=== PATIENT | male | born 1955 | race African-American/Black ===

== ENCOUNTER 2018-12-04 21:20 | Emergency (ER) | payer OTHER ==
[~2018-12-04] VITALS: Ht 185.4 cm; Wt 77.1 kg
[2018-12-04 22:15] VITALS: BP 176/85
[2018-12-04] MEDS ORDERED: CLIN300C8 PO (22:26)
[2018-12-04] MEDS ORDERED: PRED20TA PO (22:26)
--- NOTE | 2018-12-04 22:26 | PHYS DOC ---
Past Medical History Past Medical History: CAD, High Cholesterol, Hypertension, Other Past Surgical History: Other Additional Past Surgical Histo: STENTS,R ANKLE SURGERY Alcohol Use: None Drug Use: None Adult General Chief Complaint Chief Complaint: ALLERGIC REACTION HPI HPI Patient is a 63 year old [f__sex] who presents with [] Review of Systems Review of Systems Constitutional: Denies fever or chills [] Eyes: Denies change in visual acuity, redness, or eye pain [] HENT: Denies nasal congestion or sore throat [] Respiratory: Denies cough or shortness of breath [] Cardiovascular: No additional information not addressed in HPI [] GI: Denies abdominal pain, nausea, vomiting, bloody stools or diarrhea [] : Denies dysuria or hematuria [] Musculoskeletal: Denies back pain or joint pain [] Integument: Denies rash or skin lesions [] Neurologic: Denies headache, focal weakness or sensory changes [] Endocrine: Denies polyuria or polydipsia [] All other systems were reviewed and found to be within normal limits, except as documented in this note. Allergies Allergies Allergies Coded Allergies Type Severity Reaction Last Updated Verified No Known Drug Allergies 03/10/15 No Physical Exam Physical Exam Constitutional: Well developed, well nourished, no acute distress, non-toxic appearance. [] HENT: Normocephalic, atraumatic, bilateral external ears normal, oropharynx moist, no oral exudates, nose normal. [] Eyes: PERRLA, EOMI, conjunctiva normal, no discharge. [] Neck: Normal range of motion, no tenderness, supple, no stridor. [] Cardiovascular:Heart rate regular rhythm, no murmur [] Lungs & Thorax: Bilateral breath sounds clear to auscultation [] Abdomen: Bowel sounds normal, soft, no tenderness, no masses, no pulsatile masses. [] Skin: Warm, dry, no erythema, no rash. [] Back: No tenderness, no CVA tenderness. [] Extremities: No tenderness, no cyanosis, no clubbing, ROM intact, no edema. [] Neurologic: Alert and oriented X 3, normal motor function, normal sensory function, no focal deficits noted. [] Psychologic: Affect normal, judgement normal, mood normal. [] EKG EKG [] Radiology/Procedures Radiology/Procedures [] Course & Med Decision Making Course & Med Decision Making Pertinent Labs and Imaging studies reviewed. (See chart for details) [] Dragon Disclaimer Dragon Disclaimer This electronic medical record was generated, in whole or in part, using a voice recognition dictation system. Departure Departure Impression: Primary Impression: Urticaria Additional Impression: Dental caries Disposition: HOME, SELF-CARE Condition: STABLE Referrals: NO PCP (PCP) Patient Instructions: Hives, [id number] Additional Instructions: Discontinue Augmentin prescription. Utilize new antibiotic prescription instead. Start in AM. Use over the counter Benadryl: Take 1 tab (25mg) every 6 hours as needed. Scripts Clindamycin Hcl (CLINDAMYCIN HCL) 300 Mg Capsule 1 CAP PO TID for 5 Days, #15 CAP Prov: REYNALDO MEDRANO DO 12/04/18 Prednisone (PREDNISONE) 20 Mg Tablet 2 TAB PO DAILY, #8 TAB Start this prescription tomorrow, Wednesday12/05/18 Prov: REYNALDO MEDRANO DO 12/04/18 Problem Qualifiers REYNALDO MEDRANO DO Dec 04, 2018 22:26
[2018-12-04] MEDS ORDERED: diphenhydrAMINE HCL 25 MG CAPSULE PO ONE (23:00)
[2018-12-04] MEDS ORDERED: DEXAMETHASONE 4 MG TABLET PO ONE (23:00)
== END 2018-12-04 23:04 | disposition home or self-care (01) ==
LOC: ER 21:20
DX: L50.9 Urticaria, unspecified (principal); K02.9 Dental caries, unspecified; E78.00 Pure hypercholesterolemia, unspecified; I10 Essential (primary) hypertension; I25.10 Atherosclerotic heart disease of native coronary artery without angina pectoris
CPT/HCPCS: 99283; J8540; Q0163